=== PATIENT | female | born 1950 | race Caucasian/White ===

== ENCOUNTER 2018-01-28 12:29 | Emergency (ER) | payer MEDICARE ==
--- NOTE | 2018-01-28 14:34 | RAD ---
Date of service: 01/28/2018 PROCEDURE: Radiographs of the Left Shoulder HISTORY: L shoulder pain COMPARISON: No prior. FINDINGS: BONES: No acute fracture or destructive bony lesion identified. Small no bone island is suggested at the proximal humerus in the central head region. JOINTS: Glenohumeral and acromioclavicular joints preserved. No osteoarthritis. SOFT TISSUES: Ovoid calcifications suggest calcific tendinosis inferior to the acromion. OTHER FINDINGS: None. IMPRESSION: No acute fracture dislocation identified. Likely calcific tendinosis.
--- NOTE | 2018-01-28 14:56 | ED PDOC ---
Upper Extremity Pain/Injury Time Seen by Provider: 01/28/18 13:14 Chief Complaint (Nursing): Upper Extremity Problem/Injury Chief Complaint (Provider): L shoulder pain History Per: Patient History/Exam Limitations: no limitations Onset/Duration Of Symptoms: Days (3), Gradual Current Symptoms Are (Timing): Still Present Quality: Sharp Severity: Moderate Exacerbating Factor(s): Strenuous Use Of Affected Area, Movement Additional Complaint(s): 67yo female with left shoulder pain ongoing for several days. Denies falls or trauma, does admit to lifting a heavy stroller over a gate but doesnt remember immediate pain thereafter. Went to a chiropractor without relief. Denies weakness or numbness to arm/hand. L hand dominant. Past Medical History Reviewed: Historical Data, Nursing Documentation, Vital Signs Vital Signs: Last Vital Signs Temp 98.6 F 01/28/18 12:41 Pulse 109 H 01/28/18 12:41 Resp 16 01/28/18 12:41 BP 133/91 H 01/28/18 12:41 Pulse Ox 97 01/28/18 12:41 - Medical History PMH: No Chronic Diseases - Surgical History Surgical History: No Surg Hx - Family History Family History: States: Unknown Family Hx - Social History Current smoker - smoking cessation education provided: No - Home Medications Home Medications: Ambulatory Orders Medication Instructions Recorded Ibuprofen [Motrin Tab] 600 mg PO Q6 PRN #15 tab 01/28/18 - Allergies Allergies/Adverse Reactions: Allergies Allergy/AdvReac Type Severity Reaction Status Date / Time mushroom Allergy RASH Verified 01/28/18 12:41 peanut Allergy SHORTNESS Verified 01/28/18 12:41 OF BREATH Penicillins Allergy RASH Verified 01/28/18 12:41 shrimp Allergy SHORTNESS Verified 01/28/18 12:41 OF BREATH Review of Systems ROS Statement: Except As Marked, All Systems Reviewed And Found Negative Cardiovascular: Negative for: Chest Pain Respiratory: Negative for: Shortness of Breath Musculoskeletal: Positive for: Shoulder Pain. Negative for: Neck Pain, Arm Pain, Back Pain, Hand Pain, Leg Pain, Foot Pain Skin: Negative for: Rash, Lesions Neurological: Negative for: Dizziness Physical Exam - Reviewed Nursing Documentation Reviewed: Yes Vital Signs Reviewed: Yes - Physical Exam Appears: Positive for: Well, Non-toxic Head Exam: Positive for: ATRAUMATIC Skin: Positive for: Normal Color, Warm, Dry Neck: Positive for: Normal, Painless ROM. Negative for: Decreased ROM, Pain On Movement Of Neck Respiratory: Negative for: Respiratory Distress Pulses-Radial (L): 3+/4+ Pulses-Radial (R): 3+/4+ Extremity: Positive for: Other (point tenderness insertion biceps tendon and AC joint in L shoulder, mild loss active and passive ROM because of pain, normnal elbow and wrist/hand exams without tenderness or edema). Negative for: Deformity - ECG O2 Sat by Pulse Oximetry: 97 Pulse Ox Interpretation: Normal - Radiology X-Ray: Interpreted by Me (+calcific tendinosis) Medical Decision Making Medical Decision Making: pain medicine initiated and xray ordered xray result reviewed w patient wear sling x3 days, needs ortho followup Analgesics Rx. Disposition - Clinical Impression Clinical Impression: Biceps tendonitis, Shoulder pain - Patient ED Disposition Is Patient to be Admitted: No - Disposition Referrals: Alan Solorzano III, MD [Staff Provider] - Disposition: Routine/Home Disposition Time: 14:15 Condition: STABLE Additional Instructions: Wear sling for 3 days only. Take pain medicine as directed. Return to ER for any new or worsening symptoms. See orthopedics for followup and further testing and treatment. Prescriptions: Ibuprofen [Motrin Tab] 600 mg PO Q6 PRN #15 tab PRN Reason: Pain, Moderate (4-7) Instructions: Biceps Tendinopathy, Shoulder Pain (DC) Forms: [facility] management ([place])
[2018-01-28 15:10] VITALS: BP 124/67; PULSE 88; RESP 17; TEMP 97.8
[2018-01-29 15:02] VITALS: O2SAT 97
== END 2018-01-28 15:09 | disposition home or self-care (01) ==
LOC: H.ER 12:29
DX: M75.22 Bicipital tendinitis, left shoulder (principal); Z88.0 Allergy status to penicillin
CPT/HCPCS: 73030; 96372; 99283; J1885